=== PATIENT | male | born 1960 | race Caucasian/White ===

== ENCOUNTER → 2020-04-28 | Outpatient (CLI) | payer MEDICARE ==
--- NOTE | 2020-04-28 08:40 | MR ---
EXAMINATION TYPE: MR thoracic spine wo con DATE OF EXAM: 04/28/2020 COMPARISON: NONE HISTORY: Pain in T-sp, radiculopathy, muscle spasm of back. Failed outpatient treatment with physical therapy and steroids. TECHNIQUE: Multiplanar, multisequence imaging of thoracic spine is performed without contrast FINDINGS: Exam noted suboptimal as patient unable to complete the entire thoracic spine MRI sequence. Images obtained are degraded by patient motion. There is dextroconvex scoliosis centered mid thoraci c spine. Vertebral body heights fairly well maintained. There is moderate disc space narrowing with e ndplate changes at T5-T6 level. Posterior disc herniation noted at this level effacing the anterior t hecal sac, additional small posterior disc herniations efface the anterior thecal sac at T6-T7 and T8 -T9 along with T10-T11 levels on localizer. Small Schmorl nodes in the superior T6 and T10 endplates. IMPRESSION: As above. Incomplete study.
== END | disposition home or self-care (01) ==
LOC: RADMRIMAIN 07:24
PROVIDERS: ATTEND Physician Assistant
DX: M48.04 Spinal stenosis, thoracic region (principal); M51.14 Intervertebral disc disorders with radiculopathy, thoracic region; M51.44 Schmorl's nodes, thoracic region; M41.84 Other forms of scoliosis, thoracic region
CPT/HCPCS: 72146

== ENCOUNTER 2021-10-28 09:34 | Inpatient (IN) | payer MEDICARE ==
--- NOTE | 2021-10-28 10:05 | ED ---
General Adult HPI - General Chief complaint: GI Bleed Stated complaint: rectal bleeding Time Seen by Provider: 10/28/21 09:35 Source: patient, RN notes reviewed, old records reviewed Mode of arrival: ambulatory Limitations: no limitations - History of Present Illness Initial comments: This is a 61-year-old male who presents emergency Department comes in complaining of rectal bleeding. Patient states on Friday night he started having diarrhea and then it turned right red blood he states throughout the night into Friday he did quite a bit of bright red blood per rectum. Patient states he'll little abdominal queasiness but no specific pain. Patient states today he had a bowel movement and there was still bright red blood but not as much as it was yesterday. Patient denies lightheadedness or dizziness. Patient denies any blood thinners. Patient denies any chest pain or palpitations. Patient denies any shortness of breath or difficulty breathing. Patient states she's not had a history of rectal bleeding in the past. Patient denies any fever chills or cough. - Related Data Home Medications Medication Instructions Recorded Confirmed Irbesartan/Hydrochlorothiazide 1 each PO DAILY 06/22/21 06/22/21 [Irbesartan-Hctz 300-12.5 mg Tb] Allergies Allergy/AdvReac Type Severity Reaction Status Date / Time No Known Allergies Allergy Verified 10/28/21 09:39 Review of Systems ROS Statement: Those systems with pertinent positive or pertinent negative responses have been documented in the HPI. ROS Other: All systems not noted in ROS Statement are negative. Past Medical History Additional Past Medical History / Comment(s): steroids May 2021,recent MRI neck,"I felt like there was a pinched nerve in my neck- having pain radiating down left side of neck and into shoulder and down left arm to finger tips." turning neck to left has less rom than turning head to rt. History of Any Multi-Drug Resistant Organisms: None Reported Past Surgical History: Appendectomy Additional Past Surgical History / Comment(s): ORIF lt heel fx,cyst removed 4th digit lt hand Past Anesthesia/Blood Transfusion Reactions: No Reported Reaction Past Psychological History: No Psychological Hx Reported Smoking Status: Former smoker Past Alcohol Use History: None Reported Past Drug Use History: None Reported - Past Family History Mother Family Medical History: No Reported History General Exam - General Exam Comments Initial Comments: GENERAL: Patient is well-developed and well-nourished. Patient is nontoxic and well- hydrated and is in no acute distress. ENT: Neck is soft and supple. No significant lymphadenopathy is noted. Oropharynx is clear. Moist mucous membranes. Neck has full range of motion without eliciting any pain. EYES: The sclera were anicteric and conjunctiva were pink and moist. Extraocular movements were intact and pupils were equal round and reactive to light. Eyelids were unremarkable. PULMONARY: Unlabored respirations. Good breath sounds bilaterally. No audible rales rhonchi or wheezing was noted. CARDIOVASCULAR: There is a regular rate and rhythm without any murmurs gallops or rubs. ABDOMEN: Soft and nontender with normal bowel sounds. RECTAL: On rectal exam there was no fissures noted there was no obvious sites of bleeding. SKIN: Skin is clear with no lesions or rashes and otherwise unremarkable. NEUROLOGIC: Patient is alert and oriented x3. Cranial nerves II through XII are grossly intact. Motor and sensory are also intact. Normal speech, volume and content. Symmetrical smile. MUSCULOSKELETAL: Normal extremities with adequate strength and full range of motion. LYMPHATICS: No significant lymphadenopathy is noted PSYCHIATRIC: Normal psychiatric evaluation. Limitations: no limitations Course Vital Signs 10/28/21 10/28/21 09:35 09:59 Temperature 97.7 F Pulse Rate 118 H 108 H Respiratory 18 20 Rate Blood Pressure 151/79 141/84 O2 Sat by Pulse 97 98 Oximetry Medical Decision Making - Medical Decision Making EKG shows sinus tachycardia at 105 bpm RI interval 142 QRS is 82 QT interval 06 QTC is 367. Patient's EKG shows no ST segment elevation or depression. Patient's hemoglobin was stable. I spoke with some physicians agree to admit the patient and the patient I consult Dr. Jones - Lab Data Result diagrams: 10/28/21 09:55 10/28/21 09:55 Lab Results 10/28/21 10/28/21 10/28/21 Range/Units 09:55 09:55 09:55 WBC 13.7 H (3.8-10.6) k/uL RBC 5.28 (4.30-5.90) m/uL Hgb 15.6 (13.0-17.5) gm/dL Hct 47.8 (39.0-53.0) % MCV 90.6 (80.0-100.0) fL MCH 29.6 (25.0-35.0) pg MCHC 32.7 (31.0-37.0) g/dL RDW 13.5 (11.5-15.5) % Plt Count 269 (150-450) k/uL MPV 7.5 Neutrophils % 83 % Lymphocytes % 9 % Monocytes % 6 % Eosinophils % 1 % Basophils % 0 % Neutrophils # 11.4 H (1.3-7.7) k/uL Lymphocytes # 1.2 (1.0-4.8) k/uL Monocytes # 0.8 (0-1.0) k/uL Eosinophils # 0.2 (0-0.7) k/uL Basophils # 0.1 (0-0.2) k/uL PT 10.2 (9.0-12.0) sec INR 0.9 (<1.2) APTT 23.7 (22.0-30.0) sec Sodium 134 L (137-145) mmol/L Potassium 4.5 (3.5-5.1) mmol/L Chloride 103 (98-107) mmol/L Carbon Dioxide 23 (22-30) mmol/L Anion Gap 8 mmol/L BUN 12 (9-20) mg/dL Creatinine 0.96 (0.66-1.25) mg/dL Est GFR (CKD-EPI)AfAm >90 (>60 ml/min/1.73 sqM) Est GFR (CKD-EPI)NonAf 84 (>60 ml/min/1.73 sqM) Glucose 107 H (74-99) mg/dL Calcium 9.4 (8.4-10.2) mg/dL Total Bilirubin 0.9 (0.2-1.3) mg/dL AST 25 (17-59) U/L ALT 26 (4-49) U/L Alkaline Phosphatase 131 H (38-126) U/L Total Protein 7.3 (6.3-8.2) g/dL Albumin 4.3 (3.5-5.0) g/dL Blood Type Blood Type Confirm Blood Type Recheck Bld Type Recheck Status Antibody Screen Spec Expiration Date 10/28/21 10/28/21 Range/Units 09:55 10:20 WBC (3.8-10.6) k/uL RBC (4.30-5.90) m/uL Hgb (13.0-17.5) gm/dL Hct (39.0-53.0) % MCV (80.0-100.0) fL MCH (25.0-35.0) pg MCHC (31.0-37.0) g/dL RDW (11.5-15.5) % Plt Count (150-450) k/uL MPV Neutrophils % % Lymphocytes % % Monocytes % % Eosinophils % % Basophils % % Neutrophils # (1.3-7.7) k/uL Lymphocytes # (1.0-4.8) k/uL Monocytes # (0-1.0) k/uL Eosinophils # (0-0.7) k/uL Basophils # (0-0.2) k/uL PT (9.0-12.0) sec INR (<1.2) APTT (22.0-30.0) sec Sodium (137-145) mmol/L Potassium (3.5-5.1) mmol/L Chloride (98-107) mmol/L Carbon Dioxide (22-30) mmol/L Anion Gap mmol/L BUN (9-20) mg/dL Creatinine (0.66-1.25) mg/dL Est GFR (CKD-EPI)AfAm (>60 ml/min/1.73 sqM) Est GFR (CKD-EPI)NonAf (>60 ml/min/1.73 sqM) Glucose (74-99) mg/dL Calcium (8.4-10.2) mg/dL Total Bilirubin (0.2-1.3) mg/dL AST (17-59) U/L ALT (4-49) U/L Alkaline Phosphatase (38-126) U/L Total Protein (6.3-8.2) g/dL Albumin (3.5-5.0) g/dL Blood Type O Positive Blood Type Confirm O Positive Blood Type Recheck No Previous Record Bld Type Recheck Status CABO Indicated Antibody Screen NEGATIVE Spec Expiration Date 10/31/20212354 Disposition Clinical Impression: GI bleed Disposition: ADMITTED IP TO THIS [facility] Referrals: None,Stated [REFERRING] - 1-2 days Time of Disposition: 11:17
[2021-10-28 10:15] LABS: Basophils # (A) 0.1 k/uL (0-0.2); Basophils % (A) 0 %; Eosinophils # (A) 0.2 k/uL (0-0.7); Eosinophils % (A) 1 %; HCT 47.8 % (39.0-53.0); HGB 15.6 gm/dL (13.0-17.5); Lymphocytes # (A) 1.2 k/uL (1.0-4.8); Lymphocytes % (A) 9 %; MCH 29.6 pg (25.0-35.0); MCHC 32.7 g/dL (31.0-37.0); MCV 90.6 fL (80.0-100.0); Mean Platelet Volume 7.5; Monocytes # (A) 0.8 k/uL (0-1.0); Monocytes % (A) 6 %; Neutrophils # (A) 11.4 k/uL (1.3-7.7); Neutrophils % (A) 83 %; Platelet Count 269 k/uL (150-450); RBC 5.28 m/uL (4.30-5.90); RDW 13.5 % (11.5-15.5); WBC 13.7 k/uL (3.8-10.6)
[2021-10-28 10:25] LABS: ALT 26 U/L (4-49); AST 25 U/L (17-59); African American GFR (CKD) >90 (>60 ml/min/1.73 sqM); Albumin 4.3 g/dL (3.5-5.0); Alkaline Phosphatase 131 U/L (38-126); Anion Gap 8 mmol/L; Blood Urea Nitrogen 12 mg/dL (9-20); Calcium 9.4 mg/dL (8.4-10.2); Carbon Dioxide 23 mmol/L (22-30); Chloride 103 mmol/L (98-107); Glucose 107 mg/dL (74-99); Non-African American GFR(CKD) 84 (>60 ml/min/1.73 sqM); Potassium 4.5 mmol/L (3.5-5.1); Sodium 134 mmol/L (137-145); Total Bilirubin 0.9 mg/dL (0.2-1.3); Total Protein 7.3 g/dL (6.3-8.2)
[2021-10-28 10:30] LABS: INR 0.9 (<1.2)
[2021-10-28 10:31] LABS: Partial Thromboplastin Time 23.7 sec (22.0-30.0); Prothrombin Time 10.2 sec (9.0-12.0)
[2021-10-28] MEDS ORDERED: SODIUM CHLORIDE 0.9% 1,000 ML IV ONE (11:18)
[2021-10-28 12:12] VITALS: RESP 16
--- NOTE | 2021-10-28 13:16 | P.HPIM ---
History of Present Illness H&P Date: 10/28/21 Patient is a 61-year-old male with past medical history of hypertension, hemorrhoids, presented to the hospital secondary to blood in stool. Patient states about 2 days ago he had episode of diarrhea with blood in it. Yesterday he had about 10 episodes of bowel movements which was essentially bright red blood without any formed stools. This morning he had an episode of formed stool with addition of bright red blood. States he has a history of hemorrhoids but has not had bleeding to this extent. He has noticed that his stools have been harder lately. He has some suprapubic pain when he is having a bowel movement. Denies any chest pain, shortness of breath, palpitations. Denies any lightheadedness, dizziness. He had a colonoscopy about 10 years ago which per her was negative. Currently he cannot recall what blood pressure medication is on. ROS: 10 out of 14 review of systems performed negative except HPI. Pertinent positives and negatives as discussed in HPI, a complete review of systems was performed and all other systems are negative. Physical examination: Vital signs reviewed General: nontoxic, no distress, appears at stated age Derm: warm, dry Head: atraumatic, normocephalic, symmetric Eyes: EOMI, no lid lag, anicteric sclera, pupils equal round reactive to light ENT: Nose and ears atraumatic, no thrush, no pharyngeal erythema Neck: No thyromegaly, no cervical lymphadenopathy, trachea midline, supple Mouth: no lip lesion, mucus membranes moist Cardiovascular: S1S2 reg, no murmur, regular rate and rhythm Lungs: clear to auscultation bilateral, no rhonchi, no rales, no wheeze, no accessory muscle use Abdominal: soft, nontender to palpation, no guarding, no appreciable organomegaly, normal bowel sounds. Anal area examined mild erythema. Dried blood. possible hemorrhoid. Psych: Alert, oriented, appropriate affect Assessment/Plan: Hematochezia Likely lower GI bleed Hypertension Mild hyponatremia Mild leukocytosis Plan: Serial hemoglobin checks Continue IV fluids Stool softeners Surgery has been consulted Patient can't recall what medication is he on blood pressure. He will be getting his soon will resume the medication after we receive the name and dos age. The patient is admitted with an anticipated greater than 2 midnight stay for evaluation of [no]. CODE STATUS:full DVT prophylaxis: no A total of [45] minutes was spent on the care of this complex patient more than 50% of the time was spent in counseling and care Past Medical History Additional Past Medical History / Comment(s): steroids May 2021,recent MRI neck,"I felt like there was a pinched nerve in my neck- having pain radiating down left side of neck and into shoulder and down left arm to finger tips." turning neck to left has less rom than turning head to rt. History of Any Multi-Drug Resistant Organisms: None Reported Past Surgical History: Appendectomy Additional Past Surgical History / Comment(s): ORIF lt heel fx,cyst removed 4th digit lt hand Past Anesthesia/Blood Transfusion Reactions: No Reported Reaction Past Psychological History: No Psychological Hx Reported Smoking Status: Former smoker Past Alcohol Use History: None Reported Past Drug Use History: None Reported - Past Family History Mother Family Medical History: No Reported History Medications and Allergies Home Medications Medication Instructions Recorded Confirmed Type Unknown Blood Pressure Med 1 tab PO DAILY 10/28/21 10/28/21 History Allergies Allergy/AdvReac Type Severity Reaction Status Date / Time No Known Allergies Allergy Verified 10/28/21 12:34 Physical Exam Vitals: Vital Signs Temp Pulse Resp BP Pulse Ox 10/28/21 12:07 98 16 148/98 96 10/28/21 09:59 108 H 20 141/84 98 10/28/21 09:35 97.7 F 118 H 18 151/79 97 Intake and Output 10/27/21 10/28/21 10/28/21 22:59 06:59 14:59 Other: Weight 99.79 kg Results CBC & Chem 7: 10/28/21 09:55 10/28/21 09:55 Labs: Abnormal Lab Results - Last 24 Hours (Table) 10/28/21 10/28/21 Range/Units 09:55 09:55 WBC 13.7 H (3.8-10.6) k/uL Neutrophils # 11.4 H (1.3-7.7) k/uL Sodium 134 L (137-145) mmol/L Glucose 107 H (74-99) mg/dL Alkaline Phosphatase 131 H (38-126) U/L
[2021-10-28] MEDS: polyethylene glycoL 3350 17 GM POWD.PACK PO SCH (15:56)
[2021-10-28] MEDS ORDERED: traZODone HCL 50 MG TAB PO PRN (18:48)
[2021-10-28 21:03] LABS: Basophils # (A) 0.1 k/uL (0-0.2); Basophils % (A) 0 %; Eosinophils # (A) 0.2 k/uL (0-0.7); Eosinophils % (A) 1 %; HCT 46.4 % (39.0-53.0); HGB 15.8 gm/dL (13.0-17.5); Lymphocytes # (A) 1.8 k/uL (1.0-4.8); Lymphocytes % (A) 14 %; MCH 31.7 pg (25.0-35.0); MCHC 34.1 g/dL (31.0-37.0); MCV 92.9 fL (80.0-100.0); Mean Platelet Volume 7.4; Monocytes # (A) 0.7 k/uL (0-1.0); Monocytes % (A) 5 %; Neutrophils % (A) 78 %; Platelet Count 252 k/uL (150-450); RDW 14.1 % (11.5-15.5); WBC 12.9 k/uL (3.8-10.6)
[2021-10-29] MEDS ORDERED: LOSARTAN 50 MG TAB PO SCH (09:00)
[2021-10-29 09:01] LABS: Basophils # (A) 0.04 X 10*3/uL (0.00-0.10); Basophils % (A) 0.4 %; Eosinophils # (A) 0.15 X 10*3/uL (0.04-0.35); Eosinophils % (A) 1.5 %; HCT 43.2 % (39.6-50.0); HGB 14.7 g/dL (13.0-17.0); Immature Grans, Automated 0.5 %; Lymphocytes # (A) 1.48 X 10*3/uL (0.90-5.00); Lymphocytes % (A) 14.7 %; MCH 30.4 pg (27.0-32.0); MCV 89.3 fL (80.0-97.0); Mean Platelet Volume 10.4 fL (9.5-12.2); Monocytes # (A) 0.79 X 10*3/uL (0.20-1.00); Monocytes % (A) 7.9 %; NRBC Per 100 WBC 0 /100 WBCS (0.0-0.0); Neutrophils # (A) 7.53 X 10*3/uL (1.80-7.70); Platelet Count 230 X 10*3/uL (140-440); RBC 4.84 X 10*6/uL (4.40-5.60); RDW 13.8 % (11.5-14.5); WBC 10.04 X 10*3/uL (4.50-10.00)
[2021-10-29 09:05] LABS: African American GFR (CKD) 82.4 (60.0-200.0); Anion Gap 7.7 mmol/L (10.00-18.00); BUN/Creat Ratio 11.73 Ratio (12.00-20.00); Blood Urea Nitrogen 12.9 mg/dL (9.0-27.0); Carbon Dioxide 27.3 mmol/L (20.0-27.5); Non-African American GFR(CKD) 71.1 (60.0-200.0); Potassium 4.7 mmol/L (3.5-5.5)
[2021-10-29 09:26] VITALS: BP 139/72; PULSE 83; TEMP 98.4
[2021-10-29] MEDS: polyethylene glycoL 3350 17 GM POWD.PACK PO SCH (09:47)
--- NOTE | 2021-10-29 13:00 | P.GSCN ---
History of Present Illness Consult date: 10/29/21 History of present illness: CHIEF COMPLAINT: Bright red blood per rectum HISTORY OF PRESENT ILLNESS: This is a 61-year-old male who presented to the hospital with complaints of diarrhea with bright red blood per rectum on since Friday. Patient reports that he had about 10 stools on Friday with bright red blood. And then his symptoms started to improve. He also had reported having a stomach ache. His abdominal discomfort has resolved. Denies any nausea or vom iting. He had 3 bowel movements yesterday with no blood that were brown in color. In no bowel movement today. His last colonoscopy was 10 years ago and patient reports that it was normal. Patient denies any blood thinners. Hemoglobin has remained stable. Patient is smoker. Patient had been ta chycardic on admission. Heart rate is normalized. Patient is feeling better. He would like to be discharged home and had colonoscopy outpatient. PAST MEDICAL HISTORY: See list. PAST SURGICAL HISTORY: See list. MEDICATIONS: See list. ALLERGIES: See list. SOCIAL HISTORY: No illicit drug use. REVIEW OF SYSTEMS: CONSTITUTIONAL: Denies fever or chills. HEENT: Denies blurred vision, vision changes, or eye pain. Denies hemoptysis CARDIOVASCULAR: Denies chest pain or pressure. RESPIRATORY: No shortness of breath. GASTROINTESTINAL: See HPI for pertinent findings HEMATOLOGIC: Denies bleeding disorders. GENITOURINARY: Denies any blood in urine or increased urinary frequency. SKIN: Denies pruitis. Denies rash. PHYSICAL EXAM: VITAL SIGNS: Reviewed GENERAL: Well-developed in no acute distress. HEENT: No sclera icterus. Extraocular movements grossly intact. Moist buccal mucosa. Head is atraumatic, normocephalic. No nasal drainage. ABDOMEN: Soft. Nondistended. Nontender NEUROLOGIC: Alert and oriented. Cranial nerves II through XII grossly intact. LABORATORY DATA: WBC 13.7 on admission has trended down to 10.04 hemoglobin 15.6 down to 14.7 remained stable. Platelets 230 Sodium 134 potassium 4.7 creatinine 1.1 IMAGING: ASSESSMENT: 1. Acute lower GI bleed with right red blood per rectum. Bleeding has now resolved. Hemoglobin stable PLAN: -Start regular diet -Recommend colonoscopy outpatient -Continue to monitor for any signs or symptoms of bleeding Thank you for this consultation Physician Supervisor Cd Area note has been reviewed by physician. Signing provider agrees with the documented findings, assessment, and plan of care. Past Medical History Past Medical History: Hypertension Additional Past Medical History / Comment(s): steroids May 2021,recent MRI neck,"I felt like there was a pinched nerve in my neck- having pain radiating down left side of neck and into shoulder and down left arm to finger tips." turning neck to left has less rom than turning head to rt. History of Any Multi-Drug Resistant Organisms: None Reported Past Surgical History: Appendectomy Additional Past Surgical History / Comment(s): ORIF lt heel fx,cyst removed 4th digit lt hand Past Anesthesia/Blood Transfusion Reactions: No Reported Reaction Past Psychological History: No Psychological Hx Reported Smoking Status: Former smoker Past Alcohol Use History: None Reported Past Drug Use History: None Reported - Past Family History Mother Family Medical History: No Reported History Medications and Allergies Home Medications Medication Instructions Recorded Confirmed Type Losartan Potassium 100 mg PO DAILY 10/28/21 10/28/21 History Allergies Allergy/AdvReac Type Severity Reaction Status Date / Time No Known Allergies Allergy Verified 10/28/21 12:34 Surgical - Exam Vital Signs Temp Pulse Resp BP Pulse Ox 97.7 F 118 H 18 151/79 97 10/28/21 09:35 10/28/21 09:35 10/28/21 09:35 10/28/21 09:35 10/28/21 09:35 Results - Labs 10/29/21 05:48 10/29/21 05:48 Abnormal Lab Results - Last 24 Hours (Table) 10/28/21 10/29/21 10/29/21 Range/Units 20:50 05:48 05:48 WBC 12.9 H 10.04 H (3.8-10.6) k/uL Immature Gran # 0.05 H (0.00-0.04) X 10*3/uL Neutrophils # 10.0 H (1.3-7.7) k/uL Sodium 134 L (135-145) mmol/L Anion Gap 7.70 L (10.00-18.00) mmol/L BUN/Creatinine Ratio 11.73 L (12.00-20.00) Ratio Diabetes panel 10/29/21 Range/Units 05:48 Sodium 134 L (135-145) mmol/L Potassium 4.7 (3.5-5.5) mmol/L Chloride 99 (96-109) mmol/L Carbon Dioxide 27.3 (20.0-27.5) mmol/L BUN 12.9 (9.0-27.0) mg/dL Creatinine 1.1 (0.6-1.5) mg/dL Glucose 92 (70-110) mg/dL Calcium 9.0 (8.7-10.3) mg/dL Calcium panel 10/29/21 Range/Units 05:48 Calcium 9.0 (8.7-10.3) mg/dL Pituitary panel 10/29/21 Range/Units 05:48 Sodium 134 L (135-145) mmol/L Potassium 4.7 (3.5-5.5) mmol/L Chloride 99 (96-109) mmol/L Carbon Dioxide 27.3 (20.0-27.5) mmol/L BUN 12.9 (9.0-27.0) mg/dL Creatinine 1.1 (0.6-1.5) mg/dL Glucose 92 (70-110) mg/dL Calcium 9.0 (8.7-10.3) mg/dL Adrenal panel 10/29/21 Range/Units 05:48 Sodium 134 L (135-145) mmol/L Potassium 4.7 (3.5-5.5) mmol/L Chloride 99 (96-109) mmol/L Carbon Dioxide 27.3 (20.0-27.5) mmol/L BUN 12.9 (9.0-27.0) mg/dL Creatinine 1.1 (0.6-1.5) mg/dL Glucose 92 (70-110) mg/dL Calcium 9.0 (8.7-10.3) mg/dL
--- NOTE | 2021-10-29 14:14 | P.DS ---
Providers Date of admission: 10/28/21 11:18 Expected date of discharge: 10/29/21 Attending physician: Caridad Ford MD Consults: 10/28/21 11:18 Consult Physician Urgent Consulting Provider: Joe Jones Consult Reason/Comments: GI bleed Do you want consulting provider notified?: Yes Primary care physician: [facility] Course: Discharge Diagnosis: Lower GI bleed with reports of hematochezia, resolved. Hemoglobin stable. Patient to follow up outpatient with Dr. Jones next week to schedule outpatient colonoscopy. Mild hyponatremia Hypertension Mild leukocytosis, improved Hospital Course: Patient is a very pleasant 61-year-old male with a past medical history of hypertension and hemorrhoids. He presented to the emergency department on 10/28/21 with a chief complaint of hematochezia. Patient reported having approximately 10 episodes of diarrhea accompanied by bright red blood noted in toilet. Patient admitted to having previous bleeding from hemorrhoids but stated never to this extent and reports last colonoscopy being approximately 10 years ago which was normal findings.. He underwent full evaluation in the emergency department. He was found to have mild leukocytosis with WBC count of 13.7, mild hyponatremia sodium of 134, and slightly elevated alkaline phosphatase 131. EKG was completed showing sinus tachycardia at 105 bpm with no noted T-wave or ST abnormalities showing no signs of acute ischemia. Patient was admitted under our services with consultation to general surgery for evaluation. CBC was monitored closely every 6 hours and hemoglobin remained stable. Patient reports no further episodes of hematochezia or any noted blood or dark colored stool since arriving to our facility. Hemoglobin 14.7. Patient was evaluated by general surgery, recommending outpatient follow-up to schedule colonoscopy. Patient is medically stable at this time and being discharged home. Patient instructed to follow up outpatient with PCP in 1-2 days in general surgery in 1 week. Physical examination: Patient seen and examined at bedside. He was free from any abdominal pain or discomfort. Denied having any further episodes of hematochezia, melena, or any diarrhea since arrival to our facility. Patient reports having normal soft formed stools with no abnormalities. Vital signs reviewed and stable. General: Nontoxic, no distress and appears stated age. Derm: Skin warm and dry, normal coloration for ethnicity. Head: Atraumatic, normocephalic and symmetric. Eyes: EOMs intact, no lid lag, and anicteric sclera Mouth: no lip lesions, mucus membranes moist Cardiovascular: regular rate and rhythm with normal S1S2, no murmur, positive posterior tibial pulses bilaterally, and cap refill < 2 seconds. Lungs: Respirations even, regular, and unlabored on room air. Lungs CTA bilaterally, no rhonchi, no rales, no wheezing, and no accessory muscle usage. Abdominal: soft, nontender to palpation, no guarding, no appreciable organomegaly Ext: ROM intact. No gross muscle atrophy, no edema, no contractures Neuro: Speech clear, face symmetrical and CN II-XII grossly intact with no noted focal neuro deficits Psych: Alert and oriented to person, place, time, and situation. Appropriate and pleasant affect. A total of 35 minutes of time were spent preparing this complex discharge summary. Pt was discharged on 10/29/21 11:56 AM. Patient Condition at Discharge: Stable Plan - Discharge Summary New Discharge Prescriptions: No Action Losartan Potassium 100 mg PO DAILY Discharge Medication List Losartan Potassium 100 mg PO DAILY 10/28/21 [History] Follow up Appointment(s)/Referral(s): Anshu Christiansen MD [STAFF PHYSICIAN] - 1 Week (office not answering please call to make appointment ) Joe Jones MD [STAFF PHYSICIAN] - 11/07/21 8:30 am Patient Instructions/Handouts: Gastrointestinal Bleeding (DC) Activity/Diet/Wound Care/Special Instructions: Activity: As tolerated. Take breaks as needed. Diet: Heart healthy and carb consistent diet. Avoid salts, or foods with hidden salts such as canned or boxed foods and frozen dinners. Extra salt makes your heart work harder and traps the fluid in your body for longer. Special Instructions: Take all of your medications as directed and remember to keep all of your doctor's appointments and follow-up as needed. You will need to follow up outpatient with Dr. Jones, for scheduling of colonospcopy. Thank you for allowing us to participate in your care, it was truly a pleasure having you for our patient!!! Discharge Disposition: HOME SELF-CARE
== END 2021-10-29 13:15 | disposition home or self-care (01) | DRG 378 ==
LOC: EC 09:34 → 4SSUR 11:18
PROVIDERS: ADMIT Family Medicine; ATTEND Family Medicine
DX: K92.1 Melena (principal); E87.1 Hypo-osmolality and hyponatremia; I10 Essential (primary) hypertension; D72.829 Elevated white blood cell count, unspecified; Z87.891 Personal history of nicotine dependence; Z87.81 Personal history of (healed) traumatic fracture
CPT/HCPCS: 36415; 80048; 80053; 85025; 85610; 85730; 86850; 86900; 86901; 93005; 99285

== ENCOUNTER 2021-11-15 07:21 | Day surgery (SDC) | payer MEDICARE ==
[2021-11-13 12:53] VITALS: BMI 30.7
[~2021-11-15 07:21] MED LIST: LACTATED RINGERS 1,000 ML IV SCH; LIDOCAINE 1% (10MG/ML) FOR IV START INTRADERMA PRN
[2021-11-15 07:59] VITALS: TEMP 96.9
[2021-11-15] MEDS ORDERED: PROPOFOL 10 MG/ML 20 ML VIAL IV ONE (08:28)
--- NOTE | 2021-11-15 08:45 | P.GSHP ---
History of Present Illness H&P Date: 11/15/21 Chief Complaint: GI bleed Is a 61-year-old male who's had issues with GI bleed. Patient presents today for colonoscopy. Past Medical History Past Medical History: Hypertension Additional Past Medical History / Comment(s): Recent blood in stool. Mild neck pain, mild arthritis. History of Any Multi-Drug Resistant Organisms: None Reported Past Surgical History: Appendectomy, Orthopedic Surgery Additional Past Surgical History / Comment(s): ORIF left heel fx, cyst removed from 4th digit left hand. Past Anesthesia/Blood Transfusion Reactions: No Reported Reaction Past Psychological History: No Psychological Hx Reported Additional Psychological History / Comment(s): Claustrophobia. Smoking Status: Former smoker Past Alcohol Use History: None Reported Additional Past Alcohol Use History / Comment(s): Quit smoking 2020, smoked 30 yrs 1 ppd. Past Drug Use History: Marijuana Additional Drug Use History / Comment(s): Uses Marijuana a few times per week. - Past Family History Mother Family Medical History: No Reported History Medications and Allergies Home Medications Medication Instructions Recorded Confirmed Type Losartan Potassium 100 mg PO QAM 10/28/21 11/15/21 History Allergies Allergy/AdvReac Type Severity Reaction Status Date / Time No Known Allergies Allergy Verified 11/15/21 07:55 Surgical - Exam Vital Signs Temp Pulse Resp BP Pulse Ox 96.9 F L 107 H 18 158/83 96 11/15/21 07:55 11/15/21 07:55 11/15/21 07:55 11/15/21 07:55 11/15/21 07:55 - General well developed, well nourished, no distress - Eyes PERRL - ENT normal pinna - Neck no masses - Respiratory normal expansion - Cardiovascular Rhythm: regular - Abdomen Abdomen: soft, non tender Assessment and Plan Assessment: GI bleed. We'll perform colonoscopy.
[2021-11-15] MEDS ORDERED: IV FLUID CONTINUATION 600 ML IV ONE (08:46)
[2021-11-15] MEDS ORDERED: LACTATED RINGERS 1,000 ML IV ONE (08:46)
--- NOTE | 2021-11-15 08:47 | P.OP ---
Date of Procedure: 11/15/21 Preoperative Diagnosis: GI bleed Postoperative Diagnosis: Diverticulosis External hemorrhoids Procedure(s) Performed: Colonoscopy Anesthesia: MAC Surgeon: Joe Jones Pathology: none sent Condition: stable Disposition: PACU Description of Procedure: The patient's placed on the endoscopy table in the lateral position. He received IV sedation. Digital rectal exam was performed. This revealed external hemorrhoids. The flexible colonoscope was then placed patient anus and passed throughout the entire colon. The ileocecal valve was visualized. Cecum, ascending and transverse colon appeared normal. In the descending and sigmoid: There is moderate diverticular changes. Scope was then brought back the rectum. This appeared normal. Scope withdrawn for patient. There is no evidence of any active GI bleed. Presumed patient may been bleeding from hemorrhoids or diverticulosis.
[2021-11-15 08:49] VITALS: RESP 16
[2021-11-15 09:34] VITALS: BP 137/82; PULSE 87
== END 2021-11-15 09:30 | disposition home or self-care (01) ==
LOC: ORWHC2ENDO 07:21
PROVIDERS: ATTEND Surgery
DX: K57.30 Diverticulosis of large intestine without perforation or abscess without bleeding (principal); K64.4 Residual hemorrhoidal skin tags; K92.2 Gastrointestinal hemorrhage, unspecified; I10 Essential (primary) hypertension; M19.90 Unspecified osteoarthritis, unspecified site; Z90.49 Acquired absence of other specified parts of digestive tract; F40.240 Claustrophobia; Z87.891 Personal history of nicotine dependence; Z79.899 Other long term (current) drug therapy
CPT/HCPCS: 45378; J2704

== ENCOUNTER → 2023-07-23 | Outpatient (CLI) | payer MEDICARE ==
[2023-07-23 09:52] VITALS: BP 142/85; PULSE 99; RESP 16; TEMP 97.7
--- NOTE | 2023-07-23 13:37 | P.PAINPG ---
PQRS Measure Charge Sheet Comment: HISTORY OF PRESENT ILLNESS: A 63 yr old male with at side presents today with neck pain > 3 yrs secondary to DDD, neuroforaminal stenoses and facet arthropathy without myelopathy for evaluation. Patient states neck pain is 7 /10 in intensity, predominantly axial, sharp, burning in character, constant and localized in the right aspect of his cervical spine with occasional radiation of pain to the R shoulder. Pain is provoked with over activity. Pain is relieved with PT x 4 wks in 2021 and 2022 which provided temporary relief, physician guided exercises/ stretches daily since Oct 2022, heat, medications (Tyl, Ibu), repositioning and rest. Oswestry axial pain score of 26. PMH: HTN PSH: L calcaneal fx s/p fall from 20 ft 12 yrs ago, Appendectomy, Colonoscopy (2021) SH: Quit tobacco use x 1 yr. No ETOH or illicit drug use. and lives with spouse FH: Non contributory All: NKDA Meds: See list REVIEW OF ORGAN SYSTEMS: CONSTITUTIONAL: No fevers or chills. No recent weight loss. HEENT: No visual acuity loss, eye pain, difficulties with hearing. No nosebleeds. No difficulty swallowing. RESPIRATORY: Denies any troubles with breathing or dyspnea on exertion. CARDIOVASCULAR: Denies any chest pain, palpitations, or recent heart attacks. GASTROINTESTINAL: Denies fatty food intolerance. Has change in bowel habits and gas bloat. GENITOURINARY: Denies any blood in urine. Has increased urinary frequency. NEUROLOGICAL: + numbness and tingling along the distal extremities. No seizure disorders or headaches. MUSCULOSKELETAL: + back pain SKIN: No skin cancer. No rash. PSYCHIATRIC: Denies current depression or suicidal thoughts. ENDOCRINE: Denies current thyroid disorders. Denies any blood sugar glucose intolerance. HEME/LYMPHATIC: Denies any lumps and bumps around the neck. History of deep venous thrombosis. ALLERGY/IMMUNOLOGY: No immunoglobulin therapy. No immune deficiencies. BREAST: Denies current breast lumps, pain or nipple discharge. Physical Examinations : Constitutional : Cooperative , not in acute distress . HEENT: Neck supple. No Lymphadenopathy. Normal thyroid size . Eyes no ptosis , no icterus, no photophobia . Hearing intact. Normal oropharynx. No Thrush. Respiratory : Chest clear to auscultations bilaterally. No wheezing. No rhonchi. Cardiovascular : Regular rate and rhythm , S1 / S2. No S3 . No S4. Gastrointestinal : Abdomen soft. No tenderness. Bowel sounds x 4. No organomegaly . Genitourinary : Deferred. Neurologic : Cranial nerve II to XII intact. No focal neurological deficits. Psychiatric : alert & oriented x 3. Matching mood & appropriate affect. Judgment & insight intact. Lymphatic No Lymphadenopathy. Musculoskeletal : Cervical Spine Motor strength in the deltoid and biceps: Normal right side. Normal Left side Motor strength biceps and the wrist extensors: Normal right side . Normal left side Motor strength in the triceps muscle: Normal right side. Normal left side Deep tendon reflexes: Normal at the biceps. Normal at Brachioradialis. Normal at triceps Cervical facet loading test: positive bilaterally C4-C5, C5-C6 Spurling test: positive bilaterally Neck distraction test: positive bilaterally Mag sign: positive bilaterally Lumbar spine Motor strength lower extremities ,thigh and legs 5/5 Right side , 5/5 Left side Deep tendon reflexes : Normal Knee Jerk. Normal Ankle Jerk Vertebral body tenderness over Lumbar facet Loading Test: positive Right / positive Left Range of motion of the lumbar spine Flexion 30 degrees, extension 10 degrees Straight Leg Raise test: Left/ Right positive at degree Jessie test: positive right / positive left. Severe tenderness over the Sacroiliac joint on the Right / Left sides Gaenslen test: positive bilaterally Seated flexion test: positive bilaterally. Imaging: MRI of the cervical spine without contrast from 07/03/23 reviewed. Assessment/ Plan : Cervical DDD Recommendation of BL MBB C4-C5, C5-C6 #1. May need a series of injections, up until RFA, for optimal pain relief. Risks, benefits of procedure discussed and patient verbalized understanding. Minimal anesthesia including Versed and Fentanyl if indicated. Protocol for discontinuation/ continuation of medications jericho procedure discussed. All questions answered. I have spent greater than 50 minutes on patient care today. Dr Lizarraga was available by phone for the evaluation of this patient. The time was used to review the medical records including relevant urine studies and Prescription history (MAPs), review of the available imaging, evaluation and examination of the patient, coordination of care with the medical staff and if applicable referring physicians, as well as creation of the medical record PQRS Narrative: Hx Alcohol Use (MH) No Home Medications: Ambulatory Orders Losartan Potassium 100 mg PO QAM 10/28/21 Controlled Substance Measures - Controlled Substance Measures Is patient prescribed a controlled substance at discharge?: No
== END ==
LOC: PNWHC3 08:55
PROVIDERS: ATTEND Specialist
DX: M50.121 Cervical disc disorder at C4-C5 level with radiculopathy (principal); M50.122 Cervical disc disorder at C5-C6 level with radiculopathy; M99.61 Osseous and subluxation stenosis of intervertebral foramina of cervical region; Z87.891 Personal history of nicotine dependence
CPT/HCPCS: 99202

== ENCOUNTER 2023-08-08 08:17 | Day surgery (SDC) | payer MEDICARE ==
[2023-08-05 15:49] VITALS: BMI 29.9
[~2023-08-08 08:17] MED LIST changes: -LIDOCAINE 1% (10MG/ML) FOR IV START INTRADERMA PRN
[2023-08-08 08:36] VITALS: TEMP 97
[2023-08-08] MEDS: LACTATED RINGERS 1,000 ML IV SCH (08:43)
[2023-08-08] MEDS ORDERED: MIDAZOLAM 2 MG/2 ML VIAL ONE (09:09)
[2023-08-08] MEDS ORDERED: fentaNYL (PF) 50 MCG/ML 2 ML AMP ONE (09:09)
[2023-08-08] MEDS ORDERED: ROPIVACAINE 5MG/ML 20ML VIAL ONE (09:13)
[2023-08-08] MEDS: IV FLUID CONTINUATION 1,000 ML IV ONE (09:32)
--- NOTE | 2023-08-08 09:32 | P.PCN ---
Date of Procedure: 08/08/23 Description of Procedure: Pre- and Post-operative Diagnosis: Cervical facet arthropathy / Cervical Spondylosis without myelopathy Procedure: #1 right side cervical- C4-C5, and C5-C6 levels diagnostic medial branch (facet block (total 2 levels) under biplanar fluoroscopy Surgeon: Endy Mccann Anesthesia: Local: 1% Lidocaine, IV sedation: Versed 1 mg, and fentanyl 50 mcg. Complications: None Estimated blood loss: None Specimens removed: None Fluoroscopic image: Saved to patient medical records. Indications for Procedure: The patient is known to pain clinic, who has been suffering from cervical spondylosis, and headaches. Inadequate pain control with pharmacologic regimen. He has no pain on the left side of the neck so procedure done only on the right side. Procedure and Findings: The patient was seen and examined in the holding area. The written informed consent was obtained after explaining the risks, benefits and alternatives of the procedure to the patient. The patient was brought to the procedure room and was placed in the prone position on the operating room table. A pillow was placed under the upper chest. The anesthesia was started as mentioned above and monitoring was done with noninvasive blood pressure cuff, EKG and pulse oximetry. The skin preparation was done with ChloraPrep, and draping was done in usual sterile fashion. Sterile technique was observed throughout the procedure. Under biplanar fluoroscopic guidance, right cervical- 4, 5, and 6 levels articular pillars were identified. A 3 ml of 1% Lidocaine was injected with a 25 gauge needle to achieve adequate local anesthesia of the skin and subcutaneous tissue. A 25 gauge 3.5 inch spinal needle was then placed and advanced targeting the center of the waist (concave lateral surface) of the articular pillars keeping the fluoroscope in the AP view. A bony contact was obtained and then fluoroscope was changed to lateral view. Under direct fluoroscopic view, the needle was advanced close to the center of the ``trapezoid area formed by the articular pillars. No paresthesia was noted, and a negative aspiration was confirmed. 0.5 ml per level injected after negative aspiration, which contain 0.5% ropivacaine. The needles were removed intact. Area was cleaned and bandages were applied. Preprocedure VAS: 7/10 Postprocedure VAS: 4-5/10 Disposition: The patient tolerated the procedure very well. The patient was transferred to the recovery room and remained stable until discharged home. The patient was given detailed discharge instructions for infection, bleeding, increased pain at the injection site, and was advised to seek immediate medical attention should significant side effects develop. The patient will be followed up with our Pain Clinic within 2 to 4 weeks for repeat procedure itself.
--- NOTE | 2023-08-08 10:24 | FL ---
EXAMINATION TYPE: FL guided pain mgmt statistic Intraoperative/procedural fluoroscopic services were provided. Total fluoroscopy time is 24 seconds with a total of 3 submitted images to PACS. Please see the operative/procedural note for further details. DAP: [id number] mGym2
[2023-08-08 10:29] VITALS: BP 156/79; PULSE 82; RESP 18
== END 2023-08-08 10:08 | disposition home or self-care (01) ==
LOC: ORPAIN 08:17
DX: M47.812 Spondylosis without myelopathy or radiculopathy, cervical region (principal); I10 Essential (primary) hypertension; M19.90 Unspecified osteoarthritis, unspecified site; Z79.899 Other long term (current) drug therapy
CPT/HCPCS: 64490; 64491; J2250; J3010; J2795

== ENCOUNTER → 2023-09-03 | Outpatient (CLI) | payer MEDICARE ==
[2023-09-03 09:39] VITALS: BP 155/78; PULSE 91; RESP 16
--- NOTE | 2023-09-03 14:48 | P.PAINPG ---
PQRS Measure Charge Sheet Comment: HISTORY OF PRESENT ILLNESS: A 63 yr old male with at side presents today with neck pain > 3 yrs secondary to DDD, neuroforaminal stenoses and facet arthropathy without myelopathy for evaluation s/p R MBB C4-C6 #1. Pt states he experienced 100 % pain relief x 2 hrs s/p procedure. Patient states neck pain is 7 /10 in intensity, predominantly axial, sharp, burning in character, constant and localized in the right aspect of his cervical spine with occasional radiation of pain to the R shoulder. Pain is provoked with over activity. Pain is relieved with PT x 4 wks in 2021 and 2022 which provided temporary relief, physician guided exercises/ stretches daily since Oct 2022, heat, medications, reposi tioning and rest. Oswestry axial pain score of 25. Interventional procedures include BL MBB C4-C6 x1 Medications include Tyl, Ibu REVIEW OF ORGAN SYSTEMS: CONSTITUTIONAL: No fevers or chills. No recent weight loss. HEENT: No visual acuity loss, eye pain, difficulties with hearing. No nosebleeds. No difficulty swallowing. RESPIRATORY: Denies any troubles with breathing or dyspnea on exertion. CARDIOVASCULAR: Denies any chest pain, palpitations, or recent heart attacks. GASTROINTESTINAL: Denies fatty food intolerance. Has change in bowel habits and gas bloat. GENITOURINARY: Denies any blood in urine. Has increased urinary frequency. NEUROLOGICAL: + numbness and tingling along the distal extremities. No seizure disorders or headaches. MUSCULOSKELETAL: + back pain SKIN: No skin cancer. No rash. PSYCHIATRIC: Denies current depression or suicidal thoughts. ENDOCRINE: Denies current thyroid disorders. Denies any blood sugar glucose intolerance. HEME/LYMPHATIC: Denies any lumps and bumps around the neck. History of deep venous thrombosis. ALLERGY/IMMUNOLOGY: No immunoglobulin therapy. No immune deficiencies. BREAST: Denies current breast lumps, pain or nipple discharge. Physical Examinations : Constitutional : Cooperative , not in acute distress . HEENT: Neck supple. No Lymphadenopathy. Normal thyroid size . Eyes no ptosis , no icterus, no photophobia . Hearing intact. Normal oropharynx. No Thrush. Respiratory : Chest clear to auscultations bilaterally. No wheezing. No rhonchi. Cardiovascular : Regular rate and rhythm , S1 / S2. No S3 . No S4. Gastrointestinal : Abdomen soft. No tenderness. Bowel sounds x 4. No organomegaly . Genitourinary : Deferred. Neurologic : Cranial nerve II to XII intact. No focal neurological deficits. Psychiatric : alert & oriented x 3. Matching mood & appropriate affect. Judgment & insight intact. Lymphatic No Lymphadenopathy. Musculoskeletal : Cervical Spine Motor strength in the deltoid and bic eps: Normal right side. Normal Left side Motor strength biceps and the wrist extensors: Normal right side . Normal left side Motor strength in the triceps muscle: Normal right side. Normal left side Deep tendon reflexes: Normal at the biceps. Normal at Brachioradialis. Normal at triceps Cervical facet loading test: positive R C4-C5, C5-C6 Spurling test: positive bilaterally Neck distraction test: positive bilaterally Mag sign: positive bilaterally Lumbar spine Motor strength lower extremities ,thigh and legs 5/5 Right side , 5/5 Left side Deep tendon reflexes : Normal Knee Jerk. Normal Ankle Jerk Vertebral body tenderness over Lumbar facet Loading Test: positive Right / positive Left Range of motion of the lumbar spine Flexion 30 degrees, extension 10 degrees Straight Leg Raise test: Left/ Right positive at degree Jessie test: positive right / positive left. Severe tenderness over the Sacroiliac joint on the Right / Left sides Gaenslen test: positive bilaterally Seated flexion test: positive bilaterally. Imaging: MRI of the cervical spine without contrast from 07/03/23 reviewed. Assessment/ Plan : Cervical DDD Recommendation of R MBB C4-C5, C5-C6 #2. May need a series of injections, up until RFA, for optimal pain relief. Risks, benefits of procedure discussed and patient verbalized understanding. Minimal anesthesia including Versed and Fentanyl if indicated. Protocol for discontinuation/ continuation of medications jericho procedure discussed. All questions answered. I have spent greater than 50 minutes on patient care today. Dr Lizarraga was available by phone for the evaluation of this patient. The time was used to review the medical records including relevant urine studies and Prescription history (MAPs), review of the available imaging, evaluation and examination of the patient, coordination of care with the medical staff and if applicable referring physicians, as well as creation of the medical record PQRS Narrative: Hx Alcohol Use (MH) No Home Medications: Ambulatory Orders Losartan Potassium 100 mg PO QAM 10/28/21 Controlled Substance Measures - Controlled Substance Measures Is patient prescribed a controlled substance at discharge?: No
== END ==
LOC: PNWHC3 09:01
PROVIDERS: ATTEND Specialist
DX: M50.321 Other cervical disc degeneration at C4-C5 level (principal); M50.322 Other cervical disc degeneration at C5-C6 level
CPT/HCPCS: 99211

== ENCOUNTER → 2023-10-07 | Day surgery (SDC) | payer MEDICARE ==
[2023-10-03 10:37] VITALS: BMI 29.2
[~2023-10-07] MED LIST changes: -LACTATED RINGERS 1,000 ML IV SCH; +MIDAZOLAM 2 MG/2 ML VIAL ONE; +ROPIVACAINE 5MG/ML 20ML VIAL ONE
[2023-10-07 09:31] VITALS: TEMP 97.2
[2023-10-07] MEDS: LACTATED RINGERS 1,000 ML IV SCH (09:31)
[2023-10-07] MEDS: IV FLUID CONTINUATION 1,000 ML IV ONE ×2 (09:32→10:26)
[2023-10-07] MEDS: LIDOCAINE 1% (10MG/ML) FOR IV START INTRADERMA ONE (09:32)
[2023-10-07 09:47] LABS: Glucose,Whole Blood 101 mg/dL (70-110)
--- NOTE | 2023-10-07 10:22 | P.PCN ---
Date of Procedure: 10/07/23 Surgeon: Pete Singh Pathology: none sent Condition: stable Disposition: PACU Description of Procedure: PROCEDURE: Right medial branch block for the medial branches: C4,C5 and C6 with Fluroscopy [place] Diagnosis: Cervical spondylosis without myelopathy ANESTHESIA: Local with 1% lidocaine; IV moderate conscious sedation using 2 mg of Versed only EBL: Minimal PROCEDURE INDICATION: The patient with neck pain secondary to cervical arthropathy who had more than 50% relief of her pain with previous diagnostic cervical medial branch block. PROCEDURE DESCRIPTION / TECHNIQUE: The patient was seen and identified in the preoperative area. Risks, benefits, complications, and alternatives were discussed with the patient, the patient agreed to proceed with the procedure and signed the consent. IV was started. Vital signs remained stable throughout the procedure. Patient was taken to the OR and time out was completed. The patient was placed in the supine position on the procedure table. The cervical area was prepped and draped in the usual sterile fashion. Critical pause was taken. Vital signs were closely monitored during the procedure. Conscious sedation was used during the procedure to decrease patients anxiety. Using cross-table lateral fluoroscopy, the center of the trapezoid-shaped cervical pillars of C4, C5 and C6 were identified, marked, and localized with 1% lidocaine. Subsequently, a 25 guage3-1/2 inch Quincke spinal needle was advanced guided by fluoroscopy to the target points mentioned above. after contacting bone at the above-mentioned target points I injected 0.5 MLS of ropivacaine 0.5% at each level. [place] were removed. Skin was cleansed and bandages were applied. COMPLICATIONS: No acute complications. COMMENTS: A copy of needle placement was saved to the C-arm machine at the radiology department. DISPOSITION / PLANS: The patient was placed in a supine position and transferred to the recovery area in a stable condition for observation and was discharged from the recovery room after meeting discharge criteria. Home discharge instructions given to the patient by the staff.
[2023-10-07 10:31] VITALS: RESP 14
[2023-10-07 10:54] VITALS: BP 136/83; PULSE 73
--- NOTE | 2023-10-07 11:06 | FL ---
EXAMINATION TYPE: FL guided pain mgmt statistic DATE OF EXAM: 10/07/2023 FLUOROSCOPY Fluoroscopy time of 7 seconds was used during cervical spine pain management procedure. 3 image/s do cument/s the procedure. DAP .[id number] mGym2
== END ==
LOC: ORPAIN 09:00
PROVIDERS: ATTEND Anesthesiology
DX: M47.812 Spondylosis without myelopathy or radiculopathy, cervical region (principal); I10 Essential (primary) hypertension
CPT/HCPCS: 64490; 64491; 64492; 99152; J2250; J2795

== ENCOUNTER → 2023-10-23 | Outpatient (CLI) | payer MEDICARE ==
[2023-10-23 09:20] VITALS: BP 147/84; PULSE 95; RESP 16
--- NOTE | 2023-10-23 10:35 | P.PAINPG ---
PQRS Measure Charge Sheet Comment: HISTORY OF PRESENT ILLNESS: A 63 yr old male with at side presents today with neck pain > 3 yrs secondary to DDD, neuroforaminal stenoses and facet arthropathy without myelopathy for evaluation s/p R MBB C4-C6 #2. Pt states he experienced 90 % pain relief x 3-4 hrs s/p procedure. Patient states neck pain is 7 /10 in intensity, predominantly axial, sharp, burning in character, constant and localized in the right aspect of his cervical spine with occasional radiation of pain to the R shoulder. Pain is provoked with over activity. Pain is relieved with PT x 4 wks in 2021 and 2022 which provided temporary relief, physician guided exercises/ stretches daily since Oct 2022, heat, medications, repositioning and rest. Cervical disability score of 23. Interventional procedures include BL MBB C4-C6 x2 Medications include Tyl, Ibu REVIEW OF ORGAN SYSTEMS: CONSTITUTIONAL: No fevers or chills. No recent weight loss. HEENT: No visual acuity loss, eye pain, difficulties with hearing. No nosebleeds. No difficulty swallowing. RESPIRATORY: Denies any troubles with breathing or dyspnea on exertion. CARDIOVASCULAR: Denies any chest pain, palpitations, or recent heart attacks. GASTROINTESTINAL: Denies fatty food intolerance. Has change in bowel habits and gas bloat. GENITOURINARY: Denies any blood in urine. Has increased urinary frequency. NEUROLOGICAL: + numbness and tingling along the distal extremities. No seizure disorders or headaches. MUSCULOSKELETAL: + back pain SKIN: No skin cancer. No rash. PSYCHIATRIC: Denies current depression or suicidal thoughts. ENDOCRINE: Denies current thyroid disorders. Denies any blood sugar glucose intolerance. HEME/LYMPHATIC: Denies any lumps and bumps around the neck. History of deep venous thrombosis. ALLERGY/IMMUNOLOGY: No immunoglobulin therapy. No immune deficiencies. BREAST: Denies current breast lumps, pain or nipple discharge. Physical Examinations : Constitutional : Cooperative , not in acute distress . HEENT: Neck supple. No Lymphadenopathy. Normal thyroid size . Eyes no ptosis , no icterus, no photophobia . Hearing intact. Normal oropharynx. No Thrush. Respiratory : Chest clear to auscultations bilaterally. No wheezing. No rhonchi. Cardiovascular : Regular rate and rhythm , S1 / S2. No S3 . No S4. Gastrointestinal : Abdomen soft. No tenderness. Bowel sounds x 4. No organomegaly . Genitourinary : Deferred. Neurologic : Cranial nerve II to XII intact. No focal neurological deficits. Psychiatric : alert & oriented x 3. Matching mood & appropriate affect. Judgment & insight intact. Lymphatic No Lymphadenopathy. Musculoskeletal : Cervical Spine Motor strength in the deltoid and bi ceps: Normal right side. Normal Left side Motor strength biceps and the wrist extensors: Normal right side . Normal left side Motor strength in the triceps muscle: Normal right side. Normal left side Deep tendon reflexes: Normal at the biceps. Normal at Brachioradialis. Normal at triceps Cervical facet loading test: positive R C4-C5, C5-C6 Spurling test: positive bilaterally Neck distraction test: positive bilaterally Mag sign: positive bilaterally Lumbar spine Motor strength lower extremities ,thigh and legs 5/5 Right side , 5/5 Left side Deep tendon reflexes : Normal Knee Jerk. Normal Ankle Jerk Vertebral body tenderness over Lumbar facet Loading Test: positive Right / positive Left Range of motion of the lumbar spine Flexion 30 degrees, extension 10 degrees Straight Leg Raise test: Left/ Right positive at degree Jessie test: positive right / positive left. Severe tenderness over the Sacroiliac joint on the Right / Left sides Gaenslen test: positive bilaterally Seated flexion test: positive bilaterally. Imaging: MRI of the cervical spine without contrast from 07/03/23 reviewed. Assessment/ Plan : Cervical DDD Recommendation of R RFA C4-C5, C5-C6. Exhibited optimal pain relief w prior R MBB cervical procedures. Risks, benefits of procedure discussed and patient verbalized understanding. Minimal anesthesia including Versed and Fentanyl if indicated. Protocol for discontinuation/ continuation of medications jericho procedure discussed. All questions answered. I have spent greater than 50 minutes on patient care today. Dr Lizarraga was available by phone for the evaluation of this patient. The time was used to review the medical records including relevant urine studies and Prescription history (MAPs), review of the available imaging, evaluation and examination of the patient, coordination of care with the medical staff and if applicable referring physicians, as well as creation of the medical record PQRS Narrative: Hx Alcohol Use (MH) No Home Medications: Ambulatory Orders Losartan Potassium 100 mg PO QAM 10/28/21 Controlled Substance Measures - Controlled Substance Measures Is patient prescribed a controlled substance at discharge?: No
== END ==
LOC: PNWHC3 09:05
PROVIDERS: ATTEND Specialist
DX: M50.321 Other cervical disc degeneration at C4-C5 level (principal); M50.322 Other cervical disc degeneration at C5-C6 level
CPT/HCPCS: 99211

== ENCOUNTER 2023-11-14 08:38 | Day surgery (SDC) | payer MEDICARE ==
[2023-11-14] MEDS ORDERED: LACTATED RINGERS 1,000 ML BAG ONE (10:15)
[2023-11-14] MEDS ORDERED: fentaNYL (PF) 50 MCG/ML 2 ML AMP ONE (10:56)
[2023-11-14] MEDS ORDERED: ROPIVACAINE 5MG/ML 20ML VIAL ONE (10:56)
[2023-11-14] MEDS ORDERED: MIDAZOLAM 2 MG/2 ML VIAL ONE (10:56)
[2023-11-14] MEDS ORDERED: methylPREDNISolone ACETATE 40 MG/ML 1 ML VIAL ONE (10:56)
--- NOTE | 2023-12-23 18:20 | FL ---
EXAMINATION TYPE: FL guided pain mgmt statistic DATE OF EXAM: 11/25/2023 11:01 AM COMPARISON: Pre Operative Images if available both CT/MRI or plain film CLINICAL INDICATION: Male, 63 years old with history of RT CERVICAL RFA; TECHNIQUE: FL guided pain mgmt statistic, multiple fluoroscopic images provided for procedure. Total fluoroscopy time: 9 seconds Total submitted images to PACS: 2 DAP: 0.61177 mGym2 Gycm2 uGym2 cGycm2 or equivalent. FINDINGS: Fluoroscopic images during injection for pain management demonstrate multilevel degeneration changes throughout the spine. No evidence for fracture. No acute process identified. IMPRESSION: 1. No evidence for intraoperative complication. 2. Please see the operative/procedural note for further details. [facility], , 12/23/2023 6:17 PM
== END 2023-11-14 11:55 ==
LOC: ORPAIN 08:38
PROVIDERS: ATTEND Specialist
DX: M47.812 Spondylosis without myelopathy or radiculopathy, cervical region (principal); Z79.1 Long term (current) use of non-steroidal anti-inflammatories (NSAID)
CPT/HCPCS: 64633; 64634; 99152

== ENCOUNTER → 2023-12-03 | Outpatient (CLI) | payer MEDICARE ==
[2023-12-03 08:55] VITALS: BP 167/82; PULSE 94; RESP 16; TEMP 97.1
--- NOTE | 2023-12-10 11:27 | P.PAINPG ---
PQRS Measure Charge Sheet Comment: HISTORY OF PRESENT ILLNESS: A 63 yr old male with at side presents today with neck pain > 3 yrs secondary to radiculopathy, neuroforaminal stenoses and facet arthropathy without myelopathy for evaluation s/p R RFA C4-C5, C5-C6. Pt states he experienced 50 % pain relief s/p procedure. Patient states neck pain is 7 /10 in intensity, predominantly axial, sharp, burning in character, constant and localized in the right aspect of his cervical spine with occasional radiation of pain to the R shoulder. Pain is provoked with over activity. Pain is relieved with PT x 4 wks in 2021 and 2022 which provided temporary relief, physician guided exercises/ stretches daily since Oct 2022, heat, medications, THC products, repositioning and rest. Interventional procedures include BL RFAC4-C6 (Oct 2023) Medications include Tyl, Ibu, Cannabis REVIEW OF ORGAN SYSTEMS: CONSTITUTIONAL: No fevers or chills. No recent weight loss. HEENT: No visual acuity loss, eye pain, difficulties with hearing. No nosebleeds. No difficulty swallowing. RESPIRATORY: Denies any troubles with breathing or dyspnea on exertion. CARDIOVASCULAR: Denies any chest pain, palpitations, or recent heart attacks. GASTROINTESTINAL: Denies fatty food intolerance. Has change in bowel habits and gas bloat. GENITOURINARY: Denies any blood in urine. Has increased urinary frequency. NEUROLOGICAL: + numbness and tingling along the distal extremities. No seizure disorders or headaches. MUSCULOSKELETAL: + back pain SKIN: No skin cancer. No rash. PSYCHIATRIC: Denies current depression or suicidal thoughts. ENDOCRINE: Denies current thyroid disorders. Denies any blood sugar glucose intolerance. HEME/LYMPHATIC: Denies any lumps and bumps around the neck. History of deep venous thrombosis. ALLERGY/IMMUNOLOGY: No immunoglobulin therapy. No immune deficiencies. BREAST: Denies current breast lumps, pain or nipple discharge. Physical Examinations : Constitutional : Cooperative , not in acute distress . HEENT: Neck supple. No Lymphadenopathy. Normal thyroid size . Eyes no ptosis , no icterus, no photophobia . Hearing intact. Normal oropharynx. No Thrush. Respiratory : Chest clear to auscultations bilaterally. No wheezing. No rhonchi. Cardiovascular : Regular rate and rhythm , S1 / S2. No S3 . No S4. Gastrointestinal : Abdomen soft. No tenderness. Bowel sounds x 4. No organomegaly . Genitourinary : Deferred. Neurologic : Cranial nerve II to XII intact. No focal neurological deficits. Psychiatric : alert & oriented x 3. Matching mood & appropriate affect. Judgment & insight intact. Lymphatic No Lymphadenopathy. Musculoskeletal : Cervical Spine Motor strength in the deltoid and b iceps: Normal right side. Normal Left side Motor strength biceps and the wrist extensors: Normal right side . Normal left side Motor strength in the triceps muscle: Normal right side. Normal left side Deep tendon reflexes: Normal at the biceps. Normal at Brachioradialis. Normal at triceps Cervical facet loading test: positive R C4-C5, C5-C6 Spurling test: positive bilaterally Neck distraction test: positive bilaterally Mag sign: positive bilaterally Lumbar spine Motor strength lower extremities ,thigh and legs 5/5 Right side , 5/5 Left side Deep tendon reflexes : Normal Knee Jerk. Normal Ankle Jerk Vertebral body tenderness over Lumbar facet Loading Test: positive Right / positive Left Range of motion of the lumbar spine Flexion 30 degrees, extension 10 degrees Straight Leg Raise test: Left/ Right positive at degree Jessie test: positive right / positive left. Severe tenderness over the Sacroiliac joint on the Right / Left sides Gaenslen test: positive bilaterally Seated flexion test: positive bilaterally. Imaging: MRI of the cervical spine without contrast from 07/03/23 reviewed. Assessment/ Plan : Cervical radiculopathy Recommendation of follow up w orthopedic surgeon to explore additional treatment options. Pt stated he once saw Dr Ramesh and wanted a second opinion. All questions answered. I have spent greater than 30 minutes on patient care today. Dr Lizarraga was clay ilable by phone for the evaluation of this patient. The time was used to review the medical records including relevant urine studies and Prescription history (MAPs), review of the available imaging, evaluation and examination of the patient, coordination of care with the medical staff and if applicable referring physicians, as well as creation of the medical record PQRS Narrative: Hx Alcohol Use (MH) No Home Medications: Ambulatory Orders Losartan Potassium 100 mg PO QAM 10/28/21 Controlled Substance Measures - Controlled Substance Measures Is patient prescribed a controlled substance at discharge?: No
== END ==
LOC: PNWHC3 08:33
PROVIDERS: ATTEND Specialist
DX: M47.22 Other spondylosis with radiculopathy, cervical region (principal)
CPT/HCPCS: 99211

== ENCOUNTER → 2024-03-01 | Outpatient (CLI) | payer MEDICARE ==
[2024-03-01 11:04] VITALS: BP 153/91; PULSE 106; RESP 16; TEMP 97.5
--- NOTE | 2024-03-01 15:21 | P.PAINPG ---
PQRS Measure Charge Sheet Comment: HISTORY OF PRESENT ILLNESS: A 63 yr old male with at side presents today with neck pain > 3 yrs secondary to radiculopathy, neuroforaminal stenoses and facet arthropathy without myelopathy for evaluation. Patient states neck pain is 7 /10 in intensity, predominantly axial, sharp, burning in character, constant, localized in the cervical spine with occasional radiation of pain to the R shoulder. Pain is provoked with over activity. Pain is relieved with PT x 4 wks in 2021 and 2022 which provided temporary relief, physician guided exercises/ stretches daily since Oct 2022, heat, medications, THC products, repositioning and rest. Interventional procedures include BL RFA C4-C6 (Oct 2023) Medications include Tyl, Ibu, Cannabis REVIEW OF ORGAN SYSTEMS: CONSTITUTIONAL: No fevers or chills. No recent weight loss. HEENT: No visual acuity loss, eye pain, difficulties with hearing. No nosebleeds. No difficulty swallowing. RESPIRATORY: Denies any troubles with breathing or dyspnea on exertion. CARDIOVASCULAR: Denies any chest pain, palpitations, or recent heart attacks. GASTROINTESTINAL: Denies fatty food intolerance. Has change in bowel habits and gas bloat. GENITOURINARY: Denies any blood in urine. Has increased urinary frequency. NEUROLOGICAL: + numbness and tingling along the distal extremities. No seizure disorders or headaches. MUSCULOSKELETAL: + back pain SKIN: No skin cancer. No rash. PSYCHIATRIC: Denies current depression or suicidal thoughts. ENDOCRINE: Denies current thyroid disorders. Denies any blood sugar glucose intolerance. HEME/LYMPHATIC: Denies any lumps and bumps around the neck. History of deep venous thrombosis. ALLERGY/IMMUNOLOGY: No immunoglobulin therapy. No immune deficiencies. BREAST: Denies current breast lumps, pain or nipple discharge. Physical Examinations : Constitutional : Cooperative , not in acute distress . HEENT: Neck supple. No Lymphadenopathy. Normal thyroid size . Eyes no ptosis , no icterus, no photophobia . Hearing intact. Normal oropharynx. No Thrush. Respiratory : Chest clear to auscultations bilaterally. No wheezing. No rhonchi. Cardiovascular : Regular rate and rhythm , S1 / S2. No S3 . No S4. Gastrointestinal : Abdomen soft. No tenderness. Bowel sounds x 4. No organomegaly . Genitourinary : Deferred. Neurologic : Cranial nerve II to XII intact. No focal neurological deficits. Psychiatric : alert & oriented x 3. Matching mood & appropriate affect. Judgment & insight intact. Lymphatic No Lymphadenopathy. Musculoskeletal : Cervical Spine Motor strength in the deltoid and biceps: Normal right side. Normal Left side Motor strength biceps and the wrist extensors: Normal right side . Normal left side Motor strength in the triceps muscle: Normal right side. Normal left side Deep tendon reflexes: Normal at the biceps. Normal at Brachioradialis. Normal at triceps Vertebral body TTP over C6 Cervical facet loading test: positive R C4-C5, C5-C6 Spurling test: positive BL C6-C7 Neck distraction test: positive bilaterally Mag sign: positive bilaterally Lumbar spine Motor strength lower extremities ,thigh and legs 5/5 Right side , 5/5 Left side Deep tendon reflexes : Normal Knee Jerk. Normal Ankle Jerk Vertebral body tenderness over Lumbar facet Loading Test: positive Ri ght / positive Left Range of motion of the lumbar spine Flexion 30 degrees, extension 10 degrees Straight Leg Raise test: Left/ Right positive at degree Jessie test: positive right / positive left. Severe tenderness over the Sacroiliac joint on the Right / Left sides Gaenslen test: positive bilaterally Seated flexion test: positive bilaterally. Imaging: MRI of the cervical spine without contrast from 07/03/23 reviewed. Assessment/ Plan : C5-C7 spondylosis w stenosis Recommendation of DORIAN C6-C7 #1. Risks, benefits of procedure discussed and pt verbalized understanding. Protocol for discontinuation/ continuation of medications jer[place]o procedure discussed. All questions answered. I have spent greater than 30 minutes on patient care today. Dr Lizarraga was available by phone for the evaluation of this patient. The time was used to review the medical records including relevant urine studies and Prescription history (MAPs), review of the available imaging, evaluation and examination of the patient, coordination of care with the medical staff and if applicable referring physicians, as well as creation of the medical record PQRS Narrative: Hx Alcohol Use (MH) No Home Medications: Ambulatory Orders Losartan Potassium 100 mg PO QAM 10/28/21 Controlled Substance Measures - Controlled Substance Measures Is patient prescribed a controlled substance at discharge?: No
== END ==
LOC: PNWHC3 10:45
PROVIDERS: ATTEND Specialist
DX: M47.22 Other spondylosis with radiculopathy, cervical region (principal); M48.02 Spinal stenosis, cervical region
CPT/HCPCS: 99211

== ENCOUNTER 2024-03-19 11:46 | Day surgery (SDC) | payer MEDICARE ==
[2024-03-18 10:09] VITALS: BMI 31.4
[~2024-03-19 11:46] MED LIST changes: +LACTATED RINGERS 1,000 ML IV SCH; -MIDAZOLAM 2 MG/2 ML VIAL ONE; -ROPIVACAINE 5MG/ML 20ML VIAL ONE
[2024-03-19 12:08] VITALS: RESP 16; TEMP 98
[2024-03-19] MEDS ORDERED: IOPAMIDOL M200 10 ML VIAL ONE (13:25)
[2024-03-19] MEDS ORDERED: DEXAMETHASONE SOD PHOSPHATE 10 MG/ML 1 ML VIAL ONE (13:25)
--- NOTE | 2024-03-19 13:34 | P.PCN ---
Date of Procedure: 03/19/24 Procedure(s) Performed: . PROCEDURE 1. Cervical epidural steroid injection under fluoroscopic guidance, C6-7 (fluoroscopy images available in the radiology department ) 2. Cervical epidurogram. PREOPERATIVE DIAGNOSIS: 1- Cervical Degenerative Disc Diseases 2- Cervical radiculopathy., 3-cervical spondylosis with cervical Facet arthropathy without myelopathy. POSTOPERATIVE DIAGNOSIS: : 1- Cervical Degenerative Disc Diseases , 2- Cervical radiculopathy. 3-,cervical spondylosis with cervical Facet arthropathy without myelopathy. ANESTHESIA: Local anesthesia with lidocaine 1% 3 ml only EBL 0 PROCEDURE INDICATION: The patient with neck pain and radiculitis unresponsive to conservative treatment consents for procedure. PROCEDURE DESCRIPTION / TECHNIQUE: The patient was seen and identified in the preoperative area. Risks, benefits, complications, including but not limited to infections ,bleeding , allergic reactions to the medications ,and not complete pain releife, and alternatives were discussed with the patient, the patient agreed to proceed with the procedure and signed the consent. Patient was taken to the OR and time out was completed. The patient was placed in the prone position on the procedure table. A pillow was placed under the patients chest to increase the cervical interlaminar space. The cervical area was prepped and draped in the usual sterile fashion. Vital signs were closely monitored during the procedure. Using anterior-posterior fluoroscopy, the C6-7 interlaminar space was identified and the skin over this site was marked and then infiltrated with 1% lidocaine subcutaneously. Subsequently, a 20-gauge 3-1/2-inch Tuohy epidural needle was inserted and advanced toward the epidural space ( Right paramedial )by means of the ``hanging-drop technique and guided by AP and lateral fluoroscopy. The correct needle position in the epidural space was verified with the injection of 2 mL of the water soluble contrast dye [id number]-200 and observing an excellent epidurogram with the epidural spread of the dye, after negative aspiration for blood and CSF and in the absence of paresthesias. then, mixture containing 20 mg Dexamethasone and 2 ml of preservative-free normal saline injected and a washout of epidurogram was seen. Needle was withdrawn intact, skin was cleansed, and bandages were applied. Complications= none. Disposition= patient was placed in supine position and transferred to the recovery room area in stable condition and there was no evidence of upper or lower extremity motor or sensory deficit after the procedure patient was discharged from recovery room after discharge criteria met and home discharge instructions was given by the staff and patient will follow with the pain clinic in 2-4 weeks
--- NOTE | 2024-03-19 13:48 | FL ---
EXAMINATION TYPE: FL guided pain mgmt statistic DATE OF EXAM: 03/19/2024 HISTORY: Fluoroscopy time Total dose area product (DAP) in uGy*m?, mGy*cm? (or similar): 0.5813 IMPRESSION: 1. Fluoroscopy time. [facility], , 03/19/2024 1:45 PM
[2024-03-19 13:49] VITALS: BP 162/73; PULSE 81
== END 2024-03-19 13:57 | disposition home or self-care (01) ==
LOC: ORPAIN 11:46
PROVIDERS: ATTEND Specialist
DX: M47.22 Other spondylosis with radiculopathy, cervical region (principal); M50.123 Cervical disc disorder at C6-C7 level with radiculopathy
CPT/HCPCS: 62321; J1100; Q9966

== ENCOUNTER → 2024-04-12 | Outpatient (CLI) | payer MEDICARE ==
[2024-04-12 10:00] VITALS: BP 161/71; PULSE 110; RESP 16; TEMP 97.3
--- NOTE | 2024-04-12 16:20 | P.PN ---
Subjective This is a 63-year-old male who has come to pain clinic for follow-up visit following cervical epidural steroid injection. Patient relates he does not think he got significant improvement from the last injection. His pain is located in the neck area. He describes it stabbing burning sore constant in character. Intensity 5/10. Any physical activity increases the pain. No significant relieving factor. Objective - Vital Signs Vital signs: Vital Signs Temp 97.3 F L 04/12/24 09:44 Pulse 110 H 04/12/24 09:44 Resp 16 04/12/24 09:44 BP 161/71 04/12/24 09:44 Pulse Ox 97 04/12/24 09:44 FiO2 Intake & Output 04/11/24 04/12/24 04/12/24 18:59 06:59 18:59 Weight 99.79 kg - Exam Physical Examinations : -Constitutiona : Cooperative , not in acute distress . -HEENT : nech : supple , no Lymphadenopathy , normal thyroid size . : eyes : no ptosis , no icterus, no photophobia . - neurologic : Cranial nerve II to XII intact , no focal neurological deffecit . -psychatric : alert , oriented X 3 , appropriate affect , intact judgment and insight . -Lymphatic : no Lymphadenopathy . - musculoskeltal : Cervical Spine motor stregnth in the deltoid and biceps, normal right side , normal Left side motor stregnth biceps and the wrist extensors normal right side ,normal left side . motor stregnth in the triceps muscle . normal Right side , normal Left side deep tendon reflexes normal at the biceps , normal at Brachioradialis , normal at triceps. cervical facet loading test: Positive Bilaterally Spurling test= positive Right , positive left. Neck distraction test= positive Right , positive left. Mag sign= positive right, positive left . L Assessment and Plan Plan: Assessment. Chronic cervical spine pain. Cervical radiculopathy. Cervical disc bulge. Cervical stenosis. Plan. I had a long discussion with the patient and his . At this time patient wants to have a second opinion.
== END ==
LOC: PNWHC3 08:52
PROVIDERS: ATTEND Pain Medicine Interventional Pain Medicine
DX: M48.02 Spinal stenosis, cervical region (principal); M50.10 Cervical disc disorder with radiculopathy, unspecified cervical region; F12.90 Cannabis use, unspecified, uncomplicated
CPT/HCPCS: 99211